=== PATIENT | female | born 1990 | race Two or more races ===

== ENCOUNTER 2024-02-23 08:55 | Emergency (ER) | payer MEDICAID, OTHER ==
[~2024-02-23] VITALS: Ht 165.1 cm; Wt 112.0 kg
[2024-02-23 09:24] VITALS: BP 109/76; PULSE 71; RESP 16; TEMP 98.4; O2SAT 97
[2024-02-23] MEDS ORDERED: IBUP1TAB5 PO (09:47)
== END 2024-02-23 09:58 | disposition home or self-care (01) ==
LOC: ER 08:55
DX: N64.4 Mastodynia (principal)

== ENCOUNTER 2024-08-29 01:24 | Emergency (ER) | payer MEDICAID ==
[~2024-08-29] VITALS: Ht 167.6 cm; Wt 113.5 kg
[~2024-08-29 01:24] MED LIST: IBUP1TAB5 PO
[2024-08-29 02:33] LABS: Urine Bacteria FEW /hpf (None Seen); Urine Blood Negative /uL (Negative); Urine Clarity Clear (Clear); Urine Color Light-Yellow (Yellow); Urine Protein, UAD Negative (Negative); Urine Specific Gravity 1.018 (1.001-1.035); Urine Squamous Epithelial Cell FEW /hpf (<5); Urine Urobilinogen Normal (Negative); Urine WBC 4 /HPF (0-5)
[2024-08-29] MEDS ORDERED: HYDR-3682 PO (04:11)
[2024-08-29] MEDS: ONDANSETRON ODT 4 MG TAB PO ONE (04:18)
[2024-08-29 04:20] VITALS: BP 124/59; PULSE 71; RESP 17; TEMP 98.2; O2SAT 98
--- NOTE | 2024-08-29 04:41 | ED.PDOC ---
History of Present Illness HPI Comments 34-year-old female came to ER for anxiety. Patient has history of anxiety but has ran out of medications since it has been awhile since she had an anxiety attack. Usually takes Lorazepam for her anxiet. Wants a refill. Few hours ago, she had another anxiety attack, unprovoked, lasting over an hour in duration associated with nausea and dizziness. 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 Cardiac: No chest pain. No palpitations. Lungs: No shortness of breath, no cough. GI: No nausea, no vomiting, no diarrhea, no constipation, no abdominal pain : No dysuria, frequency, or urgency. No hematuria. Musculoskeletal: No joint pain , no joint swelling, no extremity edema. Skin: No rash, no itching. Neuro: No headache, no dizziness, no weakness Vital Signs Vital Signs Date Time Temp Pulse Resp B/P (MAP) Pulse Ox O2 Delivery O2 Flow Rate FiO2 08/29/24 04:20 98.2 71 17 124/59 (80) 98 98.2 08/29/24 04:20 Room Air Physical Exam General: Awake, alert and oriented. No acute distress. Skin: Skin in warm, dry and intact. Appropriate color for ethnicity. Nailbeds pink with no cyanosis. HEENT: The head is normocephalic and atraumatic. Conjunctivae are clear without exudates or hemorrhage. Sclera is non-icteric. EOM are intact. No signs of nystagmus. Eyelids are normal in appearance without swelling or lesions. Oral mucosa is pink and moist Neck: The neck is supple with normal range of motion. No JVD. Cardiac: Heart rate and rhythm are normal. No murmurs, gallops, or rubs are auscultated. Respiratory: No signs of respiratory distress. Lung sounds are clear in all lobes bilaterally without rales, ronchi, or wheezes. Abdominal: Abdomen is soft, non-tender without distention. Bowel sounds are present and normoactive in all four quadrants. Extremities: Upper and lower extremities are atraumatic in appearance without deformity or edema. Neurological: The patient is awake, alert and oriented to person, place, and time with normal speech. Speech is clear. There is no facial asymmetry. Psychiatric: Appropriate mood and affect. Good judgement and insight. No visual or auditory hallucinations. 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 Was a procedure done?: No Differential Dx Considerations may include: anxiety, medication non compliance, depression, nausea X-Ray, Labs, Meds, VS Vital Signs Date Time Temp Pulse Resp B/P (MAP) Pulse Ox O2 Delivery O2 Flow Rate FiO2 08/29/24 04:20 98.2 71 17 124/59 (80) 98 98.2 08/29/24 04:20 71 17 98 Room Air 08/29/24 01:24 98.9 98 20 111/81 (91) 100 98.9 Lab Test 08/29/24 01:40 Range/Units Urine Color Light-yellow Yellow Urine Clarity Clear Clear Urine pH 7.0 5.0-9.0 Urine Specific Harvel 1.018 1.001-1.035 Urine Protein Negative Negative Urine Ketones Negative Negative Urine Blood Negative Negative /uL Urine Nitrite Negative Negative Urine Bilirubin Negative Negative Urine Urobilinogen Normal Negative mg/dL Urine Leukocyte Esterase 2+ Negative /uL Urine RBC 1 0 - 4 /hpf Urine Microscopic WBC 4 0-5 /HPF Urine Squamous Epithelial Cells Few <5 /hpf Urine Bacteria Few H None Seen /hpf Urine Glucose Normal Normal mg/dL Current Medications Medications (Trade) Dose Ordered Sig/Francine Route Start Time Stop Time Status Last Admin Ondansetron HCl (Zofran Po) 4 mg ONCE ONCE PO 08/29/24 04:15 08/29/24 04:16 DC 08/29/24 04:18 Time of 1ST Reevaluation: 04:37 Reevaluation 1ST: Unchanged Patient Education/Counseling: Diagnosis, Treatment Family Education/Counseling: No Family Present Departure 1 Departure Impression: Primary Impression: Nausea Additional Impression: Anxiety Disposition: 01 HOME / SELF CARE Condition: Good Additional Instructions: INSTRUCCIONES DE BENITO DE Urgencias Instrucciones: Delilah atentamente todas las instrucciones proporcionadas en rosalina paquete. Aunque le hayan dado el benito del Departamento de Emergencias, esto no significa que tenga un "certificado de buena sharmin". [] Hoy no se benedict realizado ningn diagnstico definitivo para faye sntomas. Es posible que ests en proceso de desarrollar skyler enfermedad grave. Es por eso que debe regresar al servicio de urgencias sin falta si presenta algn sntoma nuevo o que empeora (especialmente si faye sntomas incluyen dolor en el pecho, dificultad para respirar, dolor abdominal, fiebre, dolor de avelino, confusin, dificultad para jah o caminar). Tambin es muy importante que consulte a un mdico de atencin primaria dentro de los prximos 3 a 5 fitzpatrick para realizar un seguimiento. Si no puede conseguir skyler samantha, regrese al servicio de urgencias para skyler nueva evaluacin. Ansiedad: Qu es? Sentirse preocupado o nervioso es normal en la olivia diaria. Todos nos inquietamos o sentimos ansiedad de vez en cuando. La ansiedad leve o moderada puede ayudarte a concentrar tu atencin, energa y motivacin. Si la ansiedad es grave, puedes sentirte impotente, confundido o muy preocupado. Sin embargo, tus sentimientos pueden estar desequilibrados con la gravedad o probabilidad del evento temido. Skyler ansiedad abrumadora que interfiere con la olivia diaria no es normal. Rosalina tipo de ansiedad puede ser sntoma de un trastorno de ansiedad o de otro problema, macario la depresin., Abre el dilogo. La ansiedad puede causar sntomas fsicos y emocionales. Skyler situacin o miedo especfico puede causar algunos o todos estos sntomas charity un corto periodo de tiempo. Cuando la situacin pasa, los sntomas suelen desaparecer. Los sntomas fsicos de la ansiedad incluyen: Temblor, tics o sacudidas. Skyler sensacin de plenitud en la garganta o el pecho. Falta de aliento o ritmo cardaco acelerado. Mareo, Abre el dilogoo mareos, Abre el dilogo. Siddharth sudorosas o fras y hmedas. Sintindose nervioso. Tensin, susana o molestias musculares (mialgias). Cansancio extremo. Problemas para dormir, macario no poder conciliar el sueo o permanecer dormido, despertarse temprano o sentirse inquieto (no sentirse descansado al despertarse). La ansiedad afecta la parte del cerebro que controla la comunicacin. Tenstrike dificulta la expresin creativa o el buen funcionamiento de las relaciones. Los sntomas emocionales de la ansiedad incluyen: Sentirse inquieto, malhumorado, nervioso o nervioso. Preocuparse demasiado. Temiendo que algo sotero suceda. Puedes sentirte condenado. No poder concentrarse. Puede que sientas que tu mente se queda en gale. Trastornos de ansiedad Los trastornos de ansiedad se presentan cuando las personas presentan sntomas tanto fsicos macario emocionales. Estos trastornos interfieren en la interaccin con los dems. Tambin afectan las actividades cotidianas. Las mujeres tienen el doble de probabilidades que los hombres de tener problemas con trastornos de ansiedad. Algunos ejemplos incluyen ataques de pnico, fobias y trastorno de ansiedad generalizada. Cuando se padece trastorno de ansiedad generalizada, se siente preocupacin y estrs por muchas actividades y eventos cotidianos. A menudo se desconoce la causa de los trastornos de ansiedad. Muchas personas que los padecen afirman tea sentido nerviosismo y ansiedad toda upton olivia. Rosalina problema puede presentarse a cualquier edad. Los nios con al menos un progenitor diagnosticado con depresin tienen ms del doble de probabilidades de padecer un trastorno de ansiedad que otros nios. Los trastornos de ansiedad a menudo se presentan junto con otros problemas, macario: Problemas de sharmin mental, macario la depresin. Consumo de sustancias, Abre el dilogoproblemas. Un problema fsico, macario skyler enfermedad cardaca o pulmonar. Es posible que se requiera un chequeo mdico completo antes de diagnosticar un trastorno de ansiedad. Ataques de pnico Un ataque de pnico, Abre el dilogoEs skyler sensacin repentina de ansiedad extrema o miedo intenso sin causa aparente o cuando no hay peligro. Los ataques de pnico son comunes. A veces se presentan en personas sanas. Suelen durar solo unos minutos, jaswant pueden ser ms prolongados. En algunas personas, la ansiedad puede empeorar rpidamente charity el ataque. Los sntomas incluyen la sensacin de estar muriendo o de perder el control de s mismo, respiracin rpida ( hiperventilacin)., Abre el dilogo), entumecimie nto u hormigueo en las siddharth o los labios, y taquicardia. Puede sentirse mareado, sudoroso o tembloroso. Otros sntomas incluyen dificultad para respirar, dolor u opresin en el pecho y latidos cardacos irregulares. Estos sntomas aparecen de repente y sin previo aviso. A veces, los sntomas de un ataque de pnico son uriostegui intensos que puedes temer estar sufriendo un ataque cardaco., Abre el dilogoMuchos de los sntomas de un ataque de pnico pueden presentarse con otras enfermedades, macario el hipertiroid ismo., Abre el dilogo, arteriopata coronaria, Abre el dilogo, o EPOC, Abre el dilogoPuede ser necesario un chequeo mdico completo antes de poder diagnosticar un trastorno de ansiedad. Se dice que las personas que tienen ataques de pnico inesperados repetidos y se preocupan por los ataques tienen un trastorno de pnico., Abre el dilogo. Fobias Fobias, Abre el dilogoSon miedos extremos e irracionales que interfieren con la olivia cotidiana. Las personas con fobias tienen miedos desproporcionados al pe ligro real. No pueden controlarlos. Las fobias son comunes. A veces se presentan junto con otras afecciones, macario el trastorno de pnico o el sndrome de Tourette., Abre el dilogoLa mayora de las personas lidian con las fobias evitando la situacin u objeto que les causa pnico. Tenstrike se denomina conducta de evitacin. Un trastorno fbico se produce cuando la conducta de evitacin se vuelve uriostegui extrema que interfiere con las actividades cotidianas. Existen melody tipos principales de trastornos fbicos: Miedo a estar solo o en lugares pblicos donde podra no tea ayuda disponible o es imposible escapar ( agorafobia), Abre el dilogo). Miedo a situaciones en las que pueda estar expuesto a crticas por parte de otros ( fobia social), Abre el dilogo). Miedo a cosas especficas (fobia especfica). Las fobias se pueden tratar para ayudar a reducir los sentimientos de miedo y ansiedad. e-Prescriptions Hydroxyzine Hcl (Hydroxyzine Hcl) 25 Mg Tab 1 TAB PO TID PRN for 3 Days, #9 TAB Prov: GIA LOPEZ MD 08/29/24 Critical Care Note Critical Care Time?: No Stability Stability form required: No Heart Score Heart Score: Heart Score Response (Comments) Value History N/A 0 EKG N/A 0 Age N/A 0 Risk Factors N/A 0 Troponin N/A 0 Total 0 I personally scribed for GIA LOPEZ MD ([email or web address]) on 08/29/24 at 04:41. Electronically submitted by Conner Russell ([email or web address]). GIA LOPEZ MD Aug 29, 2024 04:41
== END 2024-08-29 04:23 | disposition home or self-care (01) ==
LOC: ER 01:24
DX: F41.9 Anxiety disorder, unspecified (principal); R11.0 Nausea
CPT/HCPCS: 81001; 99283; Q0162

== ENCOUNTER 2025-05-07 03:40 | Emergency (ER) | payer OTHER ==
[~2025-05-07] VITALS: Ht 165.1 cm; Wt 110.5 kg
[~2025-05-07 03:40] MED LIST changes: +HYDR-3682 PO
[2025-05-07] MEDS ORDERED: LORazepam 0.5 MG TAB ONE (04:40)
[2025-05-07] MEDS ORDERED: LORazepam 2MG/ML-1ML VIAL ONE (04:45)
[2025-05-07] MEDS ORDERED: ONDANSETRON ODT 4 MG TAB ONE (04:49)
[2025-05-07] MEDS: LORazepam 2MG/ML-1ML VIAL IM ONE (04:52)
[2025-05-07] MEDS: ONDANSETRON ODT 4 MG TAB PO ONE (04:53)
--- NOTE | 2025-05-07 05:15 | ED.PDOC ---
Psychiatric HPI Comments Pt presents with cc of anxiety x 1 hour s/p argument with her . Pt denies any abuse at home, states she does feel safe. PMH anxiety, pt took her prescribed hydroxyzine without any relief of her symptoms. Patient also states on Wellbutrin XL 300 mg once daily. Suffering for anxiety x5 years was seeing a psychologist proximally three years ago. Has not had her Medications adjusted since. Reports no history of depression. That she does feel safe at home with her nonviolent. 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 Hx Family History Family History: Reviewed,noncontributory to illness Social History Smoker: Non-Smoker Alcohol: Denies ETOH Use Drugs: Denies Drug Use Lives In: Home All Other Systems: Reviewed and Negative (see hpi) Physical Exam General Appearance: No Apparent Distress, Normal HEENT: Pharynx Normal Neck: Full Range of Motion, Non-Tender Respiratory: Lungs Clear, No Respiratory Distress, Normal Breath Sounds Cardiovascular: No Edema, No JVD, No Murmur, No Gallop, Normal Peripheral Pulses, Regular Rate/Rhythm Breast Exam: Deferred Gastrointestinal: No Organomegaly, Non Tender, No Pulsatile Mass, Normal Bowel Sounds, Soft Genitalia: Deferred Pelvic: Deferred Rectal: Deferred Extremities: Normal capillary refill, Normal range of motion, No pedal edema Musculoskeletal : Apperance: Normal Neurologic: Alert, No Motor Deficits, Normal Affect, Normal Mood, No Sensory Deficits Cerebellar Function: Normal Reflexes: NOT DONE Skin: Dry, Normal Color, Warm Lymphatic: No Adenopathy Was a procedure done? Was a procedure done?: No Psych Differential Dx Psych. Differential Dx: Anxiety, Depression, Hopeless, Panic Disorder X-Ray, Labs, Meds, VS Vital Signs Date Time Temp Pulse Resp B/P (MAP) Pulse Ox O2 Delivery O2 Flow Rate FiO2 05/07/25 03:43 99.6 115 20 134/69 100 99.6 Current Medications Medications (Trade) Dose Ordered Sig/Francine Route Start Time Stop Time Status Last Admin Lorazepam (Ativan Inj) 1 mg ONCE ONCE IM 11/22/25 04:30 05/07/25 04:31 DC 05/07/25 04:52 Ondansetron HCl (Zofran Po) 4 mg ONCE ONCE PO 05/07/25 04:45 05/07/25 04:46 DC 05/07/25 04:53 X-Ray, Labs, Meds, VS Comment Patient to continue her current medications as prescribed. Patient was given Ativan 1 mg IM reports improvement requesting discharge at this time. Advised patient to consider to call her psychiatrist schedule an appointment for medication adjustment. Literature given for generalized anxiety. Advised on ER return precautions patient indicates understanding and agrees with discharge plan of care Time of 1ST Reevaluation: 04:08 Reevaluation 1ST: Unchanged Time of 2ND Reevaluation: 05:15 Reevaluation 2ND: Improved Patient Education/Counseling: Diagnosis, Treatment, Need For Follow Up Family Education/Counseling: No Family Present Departure 1 Departure Time of Disposition: 05:15 Impression: Primary Impression: Anxiety Disposition: 01 HOME / SELF CARE / HOMELESS Condition: Stable Discharged With: Spouse Critical Care Note Critical Care Time?: No Stability Stability form required: MAGGI Walls May 07, 2025 05:15
[2025-05-07 05:27] VITALS: BP 131/83; PULSE 94; RESP 19; TEMP 98; O2SAT 100
== END 2025-05-07 05:27 | disposition home or self-care (01) ==
LOC: ER 03:40
DX: F41.9 Anxiety disorder, unspecified (principal); Z79.899 Other long term (current) drug therapy
CPT/HCPCS: 96372; 99283; J2060; Q0162